=== PATIENT | female | born 1975 | race Caucasian/White ===

== ENCOUNTER 2017-11-21 18:25 | Observation (INO) | payer OTHER, SELFPAY ==
[2017-11-21] VITALS (8 sets, daily range): BP systolic 113–135; BP diastolic 75–93; PULSE 70–87; RESP 12–18; TEMP 36.5–37; O2SAT 98–100; BMI 21.5; BMI 22.5
--- NOTE | 2017-11-21 18:46 | EKG12_ITS ---
Test Reason : CP Blood Pressure : / mmHG Vent. Rate : 081 BPM Atrial Rate : 081 BPM P-R Int : 152 ms QRS Dur : 078 ms QT Int : 348 ms P-R-T Axes : 074 075 060 degrees QTc Int : 404 ms Normal sinus rhythm with sinus arrhythmia Nonspecific ST abnormality Abnormal ECG Confirmed by PRINCESS TAPIA, CALEB ([id number]), staff editor EDUARD LOTT ([id number] on 11/25/2017 1:49:57 PM Referred By: Confirmed By:CALEB SÁNCHEZ MD
--- NOTE | 2017-11-21 18:46 | RAD_ITS ---
STUDY: X-RAY CHEST REASON FOR EXAM: Female, 41 years old. Chest pain TECHNIQUE: Single AP portable view of the chest. COMPARISON: None. FINDINGS: There are monitoring devices. The lungs are clear and expanded. There is no demonstrated pleural abnormality. Normal size heart. Normal mediastinum and sung. Normal visualized pulmonary arteries. Normal visualized aortic arch and descending thoracic aorta. Normal visualized thoracic spine. Normal visualized ribs, clavicles, and shoulders. There is no demonstrated abnormality of the visualized soft tissue structures of the upper abdomen. RAD/Chest 1 View (Portable) IMPRESSION: Normal x-ray examination of the chest. Electronically Signed: Dusty Phelps MD at 19:05 EDT , Service support ,
--- NOTE | 2017-11-21 18:49 | NURSING ---
NO OLD EKG
--- NOTE | 2017-11-21 18:55 | ED.DCSUM_ITS ---
- ER Visit Summary Date of Service: 11/21/17 Chief Complaint: Chest pain, shortness of breath History of Present Illness: The patient is a 41 F presenting with chest pain, shortness of breath. Patient states she has had nausea for the past 2 days without vomiting. Today she began having midsternal chest pain which radiated to her right arm. She was short of breath with this. Symptoms lasted for approximately 3 hours. It is now resolved. She has no coronary artery disease risk factors. She did recently travel to [facility]. No other PE/DVT risk factors. She is not a smoker. Physical Examination: Vitals are stable. Patient is afebrile. Alert no acute distress. HEENT exam is unremarkable. Neck is supple. Lungs are clear and equal bilaterally. Heart is regular rate and rhythm. Abdomen is soft nontender nondistended. Extremities are unremarkable. Skin is warm and dry. No focal neurologic deficit. Remainder of exam is unremarkable. Emergency Department Course and Treatment: Patient was given aspirin on arrival. EKG is sinus rate of [address] depression inferiorly. CBC, chemistries unremarkable. Troponin is negative. D-dimer negative. Chest x-ray shows no acute process. She is chest pain-free on reevaluation. Will discuss with the hospitalist for observation. Disposition: Observation Impression: Chest pain This note was generated with [employer] dictation software. It may contain incorrect words, spelling, and punctuation that were not noted in review of the chart prior to signing ED Disposition - Plan for ED Patient: Chief Complaint: Chest Pain Referrals: Dinorah Sevilla DO [Primary Care Provider] -
[2017-11-21] MEDS: Aspirin 81 MG TAB.CHEW 324 MG PO (18:58)
[2017-11-21 19:02] LABS: Absolute Lymphocyte Count 1.64 X10^3/ul (0.83-4.51); Absolute Neutrophil Count 3.3 X10^3/uL (2.0-7.7); Eosinophil# 0.05 X10^3/uL; Eosinophils% 0.9 % (0-5); Hematocrit 38.6 % (37-47); Hemoglobin 12.5 g/dl (12.0-15.0); Lymphocyte # 1.64 X10^3/ul (4.0); Mean Corp Hgb Conc 32.4 g/gl (32-36); Mean Corpuscular Hgb 26.8 pg (27.0-32.0); Mean Corpuscular Volume 82.8 fL (81-99); Mean Platelet Vol. 9.5 fl (6.2-12.0); Monocyte# 0.44 X10^3/uL; Monocyte% 8.1 % (0-10); Neutrophil # 3.33 X10^3/uL (2.7-7.7); Platelet Count 283 K/mm3 (150-450); RBC Distribution Width CV 14.5 % (11.6-14.6); RBC Distribution Width SD 43.7 fl (35.1-43.9); Red Blood Count 4.66 M/mm3 (4.2-5.4); White Blood Count 5.5 K/mm3 (4.4-11.0)
[2017-11-21 19:04] LABS: POSITIVE COUNT NO; POSITIVE DIFFERENTIAL NO; POSITIVE MORPHOLOGY NO
[2017-11-21 19:13] LABS: Anion Gap 6 (5-15); BUN 13 mg/dL (7-18); BUN/Creat Ratio 18.3 RATIO (10-20); Calcium,Total 8.5 mg/dL (8.5-10.1); Chloride 107 mmol/L (98-107); Creatinine, Serum 0.71 mg/dL (0.55-1.02); EST Glomerular Filtration Rate 97 mL/min (>60); Est Glom Filt Rate - Afr Amer 117 mL/min (>60); Estimated Creatinine Clearance 113.13 ml/min; Glucose 99 mg/dL (74-106); Potassium 3.6 mmol/L (3.5-5.1); Sodium Level 140 mmol/L (136-145)
[2017-11-21 19:22] LABS: D-Dimer Quantitative (DVT/PE) < 0.27 FEU/ug/m (0.27-0.49)
--- NOTE | 2017-11-21 20:43 | PCM.HP.STD ---
History of Present Illness Date of Admission: 11/21/17 Chief Complaint: Chest pain. The patient is a 41 year old F with no significant past medical history except for depression presented to the emergency room because of chest pain. This morning around 10 AM, she was sitting with her kids and she started having chest pain, described as dull aching pain, not radiating, 4-5 out of 10 in severity, associated with mild shortness of breath and nausea, lasted for about 3 hours and resolved spontaneously. She came to the emergency room around 6 PM. At this time, she has no more pain. She mentioned that she took ibuprofen and it did help her pain. Occasionally, the pain worsened by taking a deep breath. Patient was crying during the encounter. She has no personal or family history of CAD. No family history of premature CAD. In the emergency department, her vital signs are stable. Her routine blood work was unremarkable. D-dimer and troponin was negative. EKG revealed normal sinus rhythm, normal [place] interval normal, normal QRS, and no acute ischemic changes. Chest x-ray showed no acute findings. She is being admitted for atypical chest pain for evaluation. 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 Denies: Chest Pressure, Chest Tightness, Edema, Heaviness, Light Headedness, Palpitations, Syncope Respiratory: Reports: Shortness of Breath. Denies: Cough, Pleuritic Pain, Sputum production, Wheezing Gastrointestinal: Reports: Nausea. Denies: Abdominal Pain, Constipation, Diarrhea, Vomiting Genitourinary: Denies: Dysuria, Frequency, Hematuria Musculoskeletal: Denies: Arm Pain, Back Pain, Foot Pain Skin: Denies: Dryness, Rash Neurological: Denies: Balance problems, Double vision, Slurred speech, Confusion, Headaches, Incoordination, Numbness Psychiatric: Reports: Depression. Denies: Anxiety Endocrine: Denies: Change in Body Habitus, Polydipsia VTE Information - Inpt Only VTE Present on Admission: No VTE Mechan Device Prophylaxis: None VTE Pharm Prophylaxis ordered?: No - Physical Exam General: Alert, Oriented x3, Cooperative, - - Patient was tearful during the encounter. HEENT: Atraumatic, PERRLA, EOMI Oral: Moist Mucosa, No Gingival or Mucosal Lesions/ Ulcerations Neck: Supple, No JVD, Negative Carotid Bruits, Trachea Midline, Thyroid Normal Size and Texture Lungs: Clear to auscultation, Normal air movement, No rhonchi, No wheeze, No rales Cardiovascular: Regular rate, Regular Rhythm, Normal S1, Normal S2, No murmurs, PMI Normal Abdomen: Bowel Sounds Present, Soft, Non Tender, Non-Distended, No Hepato-splenomegaly Extremities: No clubbing, No cyanosis, No edema Skin: No rashes, No breakdown Lymphatic: No Cervical, Supraclavicular, or Inguinal Adenopathy Neurological: Cranial nerves II-XII grossly intact, Motor Exam 5/5 strength throughout Psych/Mental Status: Normal Affect, Appropriate, Alert and oriented to time, place, person, mood and affect Vital Signs Temp Pulse Resp BP Pulse Ox 98.6 F 75 12 131/93 H 99 11/21/17 18:26 11/21/17 20:29 11/21/17 20:28 11/21/17 20:28 11/21/17 20:28 Oxygen Delivery Method Room Air Weight: 150 lb Body Mass Index (BMI) 21.5 Laboratory Tests Past 24 Hrs 11/21/17 11/21/17 11/21/17 18:40 18:40 18:40 WBC 5.5 RBC 4.66 Hgb 12.5 Hct 38.6 MCV 82.8 MCH 26.8 L MCHC 32.4 RDW 14.5 RDW Differential 43.7 Plt Count 283 MPV 9.5 Immature Gran % (Auto) 0.000 Neut % (Auto) 61.0 Lymph % (Auto) 30.0 [place] % (Auto) 8.1 Eos % (Auto) 0.9 Baso % (Auto) 0.0 Absolute Neuts (auto) 3.3 Absolute Lymphs (auto) 1.64 Total Counted Not Reportable D-Dimer Quant (PE/DVT) < 0.27 L Sodium 140 Potassium 3.6 Chloride 107 Carbon Dioxide 27.0 Anion Gap 6 BUN 13 Creatinine 0.71 Estim Creat Clear Calc 113.13 Est GFR (MDRD) Af Amer 117 Est GFR (MDRD) Non-Af 97 BUN/Creatinine Ratio 18.3 Glucose 99 Calcium 8.5 Troponin I < 0.02 Clinical Impression(s) from Imaging Studies Chest X-Ray 11/21/17 18:46 IMPRESSION: Normal x-ray examination of the chest. Electronically Signed: Dusty Phelps MD at 19:05 EDT , Service support , Assessment/Plan This is a 41 years old female patient presented to the emergency room because of chest pain and she is being admitted for evaluation. #1 atypical chest pain: With no significant risk factors for CAD. She denied family history of premature CAD. She is not a smoker. Her URBANO score is 0. She is at low risk for CAD. Chest x-ray showed no acute findings. EKG reveals no acute ischemic changes. Troponin is negative. Vital signs are stable. Routine blood work was unremarkable. Plan: Admit to PCU for observation, cardiac monitoring, serial cardiac enzymes, repeat EKG tomorrow morning, Tylenol as needed for pain, treadmill stress test tomorrow morning if cardiac enzymes are negative. #2 depression: Continue Celexa. #3 DVT prophylaxis: Low risk patient, no prophylaxis indicated. This note was generated with [employer] dictation software. It may contain incorrect words, spelling, and punctuation that were not noted in checking the note before signing. Code Visit OBSV E&M: 34443 Initial observation care L2
--- NOTE | 2017-11-21 20:48 | HP.PCM_ITS ---
History of Present Illness Date of Admission: 11/21/17 Chief Complaint: Chest pain. The patient is a 41 year old F with no significant past medical history except for depression presented to the emergency room because of chest pain. This morning around 10 AM, she was sitting with her kids and she started having chest pain, described as dull aching pain, not radiating, 4-5 out of 10 in severity, associated with mild shortness of breath and nausea, lasted for about 3 hours and resolved spontaneously. She came to the emergency room around 6 PM. At this time, she has no more pain. She mentioned that she took ibuprofen and it did help her pain. Occasionally, the pain worsened by taking a deep breath. Patient was crying during the encounter. She has no personal or family history of CAD. No family history of premature CAD. In the emergency department, her vital signs are stable. Her routine blood work was unremarkable. D-dimer and troponin was negative. EKG revealed normal sinus rhythm, normal [place] interval normal, normal QRS, and no acute ischemic changes. Chest x-ray showed no acute findings. She is being admitted for atypical chest pain for evaluation. 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 Denies: Chest Pressure, Chest Tightness, Edema, Heaviness, Light Headedness, Palpitations, Syncope Respiratory: Reports: Shortness of Breath. Denies: Cough, Pleuritic Pain, Sputum production, Wheezing Gastrointestinal: Reports: Nausea. Denies: Abdominal Pain, Constipation, Diarrhea, Vomiting Genitourinary: Denies: Dysuria, Frequency, Hematuria Musculoskeletal: Denies: Arm Pain, Back Pain, Foot Pain Skin: Denies: Dryness, Rash Neurological: Denies: Balance problems, Double vision, Slurred speech, Confusion , Headaches, Incoordination, Numbness Psychiatric: Reports: Depression. Denies: Anxiety Endocrine: Denies: Change in Body Habitus, Polydipsia VTE Information - Inpt Only VTE Present on Admission: No VTE Mechan Device Prophylaxis: None VTE Pharm Prophylaxis ordered?: No - Physical Exam General: Alert, Oriented x3, Cooperative, - - Patient was tearful during the encounter. HEENT: Atraumatic, PERRLA, EOMI Oral: Moist Mucosa, No Gingival or Mucosal Lesions/ Ulcerations Neck: Supple, No JVD, Negative Carotid Bruits, Trachea Midline, Thyroid Normal Size and Texture Lungs: Clear to auscultation, Normal air movement, No rhonchi, No wheeze, No rales Cardiovascular: Regular rate, Regular Rhythm, Normal S1, Normal S2, No murmurs, PMI Normal Abdomen: Bowel Sounds Present, Soft, Non Tender, Non-Distended, No Hepato- splenomegaly Extremities: No clubbing, No cyanosis, No edema Skin: No rashes, No breakdown Lymphatic: No Cervical, Supraclavicular, or Inguinal Adenopathy Neurological: Cranial nerves II-XII grossly intact, Motor Exam 5/5 strength throughout Psych/Mental Status: Normal Affect, Appropriate, Alert and oriented to time, place, person, mood and affect Vital Signs Temp Pulse Resp BP Pulse Ox 98.6 F 75 12 131/93 H 99 11/21/17 18:26 11/21/17 20:29 11/21/17 20:28 11/21/17 20:28 11/21/17 20:28 Oxygen Delivery Method Room Air Weight: 150 lb Body Mass Index (BMI) 21.5 Laboratory Tests Past 24 Hrs 11/21/17 11/21/17 11/21/17 18:40 18:40 18:40 WBC 5.5 RBC 4.66 Hgb 12.5 Hct 38.6 MCV 82.8 MCH 26.8 L MCHC 32.4 RDW 14.5 RDW Differential 43.7 Plt Count 283 MPV 9.5 Immature Gran % (Auto) 0.000 Neut % (Auto) 61.0 Lymph % (Auto) 30.0 [place] % (Auto) 8.1 Eos % (Auto) 0.9 Baso % (Auto) 0.0 Absolute Neuts (auto) 3.3 Absolute Lymphs (auto) 1.64 Total Counted Not Reportable D-Dimer Quant (PE/DVT) < 0.27 L Sodium 140 Potassium 3.6 Chloride 107 Carbon Dioxide 27.0 Anion Gap 6 BUN 13 Creatinine 0.71 Estim Creat Clear Calc 113.13 Est GFR (MDRD) Af Amer 117 Est GFR (MDRD) Non-Af 97 BUN/Creatinine Ratio 18.3 Glucose 99 Calcium 8.5 Troponin I < 0.02 Clinical Impression(s) from Imaging Studies Chest X-Ray 11/21/17 18:46 IMPRESSION: Normal x-ray examination of the chest. Electronically Signed: Dusty Phelps MD at 19:05 EDT , Service support , Assessment/Plan This is a 41 years old female patient presented to the emergency room because of chest pain and she is being admitted for evaluation. #1 atypical chest pain: With no significant risk factors for CAD. She denied family history of premature CAD. She is not a smoker. Her URBANO score is 0. She is at low risk for CAD. Chest x-ray showed no acute findings. EKG reveals no acute ischemic changes. Troponin is negative. Vital signs are stable. Routine blood work was unremarkable. Plan: Admit to PCU for observation, cardiac monitoring, serial cardiac enzymes, repeat EKG tomorrow morning, Tylenol as needed for pain, treadmill stress test tomorrow morning if cardiac enzymes are negative. #2 depression: Continue Celexa. #3 DVT prophylaxis: Low risk patient, no prophylaxis indicated. This note was generated with [employer] dictation software. It may contain incorrect words, spelling, and punctuation that were not noted in checking the note before signing. Code Visit OBSV E&M: 62271 Initial observation care L2
[2017-11-21] MEDS: 0.9% NaCl Peripheral Flush Adult/Peds IV (23:33)
[2017-11-21] MEDS: Ondansetron 4 MG/2 ML Vial IV (23:33)
[2017-11-22 03:10] VITALS: PULSE 68
[2017-11-22 03:13] LABS: Absolute Neutrophil Count 3.1 X10^3/uL (2.0-7.7); Basophil# 0.02 X10^3/uL; Basophil% 0.4 % (0-1); Eosinophil# 0.06 X10^3/uL; Eosinophils% 1.2 % (0-5); Hematocrit 36.9 % (37-47); Hemoglobin 11.8 g/dl (12.0-15.0); Lymphocyte % 29.1 % (19-41); Mean Corpuscular Hgb 26.5 pg (27.0-32.0); Mean Corpuscular Volume 82.7 fL (81-99); Mean Platelet Vol. 9.4 fl (6.2-12.0); Monocyte# 0.45 X10^3/uL; Monocyte% 8.7 % (0-10); Neutrophil # 3.13 X10^3/uL (2.7-7.7); Neutrophil % 60.6 % (47-70); Platelet Count 261 K/mm3 (150-450); RBC Distribution Width CV 14.7 % (11.6-14.6); RBC Distribution Width SD 43.9 fl (35.1-43.9); Red Blood Count 4.46 M/mm3 (4.2-5.4); White Blood Count 5.2 K/mm3 (4.4-11.0)
[2017-11-22 03:16] LABS: International Normalized Ratio 1.3; Prothrombin Time (Protime)PT. 16.3 SECONDS (11.7-14.9)
[2017-11-22 03:19] LABS: POSITIVE COUNT NO; POSITIVE DIFFERENTIAL NO; POSITIVE MORPHOLOGY NO
[2017-11-22 03:21] VITALS: BP 92/53; PULSE 71; RESP 14; TEMP 36.7; O2SAT 96
[2017-11-22 03:21] LABS: Partial Thromboplast Time 28.6 Seconds (24.1-36.2)
[2017-11-22 03:37] LABS: Anion Gap 5 (5-15); BUN 9 mg/dL (7-18); BUN/Creat Ratio 16.4 RATIO (10-20); Calcium,Total 7.9 mg/dL (8.5-10.1); Chloride 110 mmol/L (98-107); Creatinine, Serum 0.55 mg/dL (0.55-1.02); EST Glomerular Filtration Rate 130 mL/min (>60); Est Glom Filt Rate - Afr Amer 157 mL/min (>60); Estimated Creatinine Clearance 147.03 ml/min; Glucose 84 mg/dL (74-106); Potassium 3.7 mmol/L (3.5-5.1); Sodium Level 143 mmol/L (136-145)
[2017-11-22 06:54] VITALS: PULSE 65
[2017-11-22] MEDS: Acetaminophen 325 MG Tablet 650 MG PO (08:41)
--- NOTE | 2017-11-22 09:18 | STRESSREP ---
Stress Test Report Date: 11/22/2017 Procedure: Exercise tolerance test/imaging study Indications: Chest pain Consent: Per the patient Procedure: The patient exercised on a Roland protocol for 9 minutes completing Stage 3 achieving a peak heart rate of 171 bpm (95 % predicted maximal heart rate) with a peak blood pressure 124/70 mmHg and a peak MET capacity of 10 METs. The baseline ECG demonstrated normal sinus rhythm. The peak exercise ECG demonstrated no obvious ECG changes. [There were no cardiac dysrhythmias pretest, during exercise, or recovery]. The functional capacity was considered good. There was [no complaint of chest discomfort during exercise or recovery]. The examination was discontinued secondary to fatigue. Impression: 1. Technically adequate (percent predicted maximal heart rate greater than 85%) exercise tolerance test 2. Peak exercise ECG with no obvious ECG changes 3. There were no cardiac dysrhythmias pretest, during exercise, or recovery. 4. Nuclear images pending Myocardial perfusion imaging study: Technique: The patient was injected with 11.1 mCi of technetium 99m Cardiolite and subsequently rest SPECT Cardiolite nuclear imaging was obtained in the horizontal long, vertical long, and short axis views. The patient exercised on a Roland protocol for 9 minutes completing Stage 3 achieving a peak heart rate of 171 bpm (95 % predicted maximal heart rate) with a peak blood pressure 124/70 mmHg and a peak MET capacity of 10 METs. The patient was injected with 32.8 mCi of technetium 99m Cardiolite and subsequently stress SPECT Cardiolite nuclear imaging was obtained in the horizontal long, vertical long, and short axis views. A gated Cardiolite study at peak stress was obtained. Interpretation: Rest and stress SPECT Cardiolite nuclear imaging status post realignment, normalization, and attenuation correction, demonstrates [the appearance of relative uniform tracer uptake and myocardial perfusion appearing within normal limits]. [There is end systolic thickening and brightening]. The gated Cardiolite study demonstrates [myocardial thickening and inward wall motion]. The reported LVEF is in the 73%. Impression: 1. Rest and stress SPECT Cardiolite nuclear imaging demonstrate [relative uniform tracer uptake and myocardial perfusion appearing within normal limits]. 2. The gated Cardiolite study reports an LVEF of 73 %. This note was generated with [employer] software. It may contain incorrect words, spelling, and punctuation that were not noted in checking the note before signing.
[2017-11-22 09:20] VITALS: BP 106/67; PULSE 70; RESP 18; TEMP 36.7; O2SAT 98
--- NOTE | 2017-11-22 09:23 | STRESSREP_ITS ---
Stress Test Report Date: 11/22/2017 Procedure: Exercise tolerance test/imaging study Indications: Chest pain Consent: Per the patient Procedure: The patient exercised on a Roland protocol for 9 minutes completing Stage 3 achieving a peak heart rate of 171 bpm (95 % predicted maximal heart rate) with a peak blood pressure 124/70 mmHg and a peak MET capacity of 10 METs. The baseline ECG demonstrated normal sinus rhythm. The peak exercise ECG demonstrated no obvious ECG changes. [There were no cardiac dysrhythmias pretest, during exercise, or recovery]. The functional capacity was considered good. There was [no complaint of chest discomfort during exercise or recovery]. The examination was discontinued secondary to fatigue. Impression: 1. Technically adequate (percent predicted maximal heart rate greater than 85% ) exercise tolerance test 2. Peak exercise ECG with no obvious ECG changes 3. There were no cardiac dysrhythmias pretest, during exercise, or recovery. 4. Nuclear images pending Myocardial perfusion imaging study: Technique: The patient was injected with 11.1 mCi of technetium 99m Cardiolite and subsequently rest SPECT Cardiolite nuclear imaging was obtained in the horizontal long, vertical long, and short axis views. The patient exercised on a Roland protocol for 9 minutes completing Stage 3 achieving a peak heart rate of 171 bpm (95 % predicted maximal heart rate) with a peak blood pressure 124/ 70 mmHg and a peak MET capacity of 10 METs. The patient was injected with 32.8 mCi of technetium 99m Cardiolite and subsequently stress SPECT Cardiolite nuclear imaging was obtained in the horizontal long, vertical long, and short axis views. A gated Cardiolite study at peak stress was obtained. Interpretation: Rest and stress SPECT Cardiolite nuclear imaging status post realignment, normalization, and attenuation correction, demonstrates [the appearance of relative uniform tracer uptake and myocardial perfusion appearing within normal limits]. [There is end systolic thickening and brightening]. The gated Cardiolite study demonstrates [myocardial thickening and inward wall motion]. The reported LVEF is in the 73%. Impression: 1. Rest and stress SPECT Cardiolite nuclear imaging demonstrate [relative uniform tracer uptake and myocardial perfusion appearing within normal limits]. 2. The gated Cardiolite study reports an LVEF of 73 %. This note was generated with [employer] software. It may contain incorrect words, spelling, and punctuation that were not noted in checking the note before signing.
[2017-11-22 11:05] VITALS: PULSE 66
--- NOTE | 2017-11-22 11:26 | PCM.DC ---
You will use the following diet at home:: No restrictions Your food should be the consistency of: Regular Your liquids should be the consistency of: Regular/Thin Discharge Activity: Return to Normal Activity Allergies/Adverse Reactions: Allergies clindamycin Allergy (Verified 11/21/17 18:29) Other Medications to take at Discharge Citalopram Hydrobromide [Citalopram HBr] 20 mg PO DAILY 11/21/17 Omeprazole [Prilosec] 20 mg PO DAILY #30 cap 11/22/17 The following prescriptions were given: Omeprazole [Prilosec] 20 mg PO DAILY #30 cap Primary Care Physician: Dinorah Sevilla DO [Primary Care Provider] - Please follow up with your Primary Care Physician in: 1-2 weeks Proposed Discharge Date: 11/22/17
--- NOTE | 2017-11-22 12:42 | PCM.DC.SUM ---
<Luis Alfredo Galarza - Last Filed: 11/22/17 12:42> Discharge Date and Diagnosis Date of Admission: 11/21/17 Date of Discharge: 11/22/17 - Primary Discharge Diagnosis Chest pain-GERD Anxiety Hospital Course and Treatment Imaging Results: 11/22/17 05:55 Nuclear Stress Test - [facility] [NM] AM (NON MEDS) Operations: None Procedures: Stress test Summary of Care Provided: Physical exam on day of discharge: General: Resting comfortably NAD Psych: A/Ox3 normal affect HEENT: PEARRLA AT NC Neck: Supple NT CV: RRR no m/t/r/g/h Resp: CTA Abd: [id number] Soft NT no guarding or rigidity Ext: DP2+= no edema Skin: W/D normal turgor Lymph/Heme: No active bleeding or adenopathy Neuro: CN2-12 intact Hospital course: The patient is a 41 year old F who has a history of anxiety and depression, who presents to the emergency room complaining of chest pain described as a midsternal dull ache, nonradiating, 4-5 out of 10 in severity with some mild shortness of breath, she also had nausea nauseousness when her chest pain would come on. She took an ibuprofen which somewhat helped her pain. In the ER she was tearful and crying, but however had negative d-dimer, negative troponin, negative chest x-ray, negative EKG. She was admitted for chest pain workup. Telemetry remain negative, repeat EKG was negative, stress test was negative, troponins were negative. Is felt that her chest pain was secondary to GERD as she had associated nausea. Is recommended that she trial a month of omeprazole 20 mg daily. Advised her to follow-up with her primary care physician in 1-2 weeks. The patient was discharged home in stable condition This patient was seen by Luis Alfredo Galarza PA-C under the supervision of Doctor Sherley. [] Discharge Diet: No Restrictions Discharge Activity: Return to Normal Activity Home Medications: Medications to take at Discharge Citalopram Hydrobromide [Citalopram HBr] 20 mg PO DAILY 11/21/17 Omeprazole [Prilosec] 20 mg PO DAILY #30 cap 11/22/17 Following Prescrptions Were Given to Patient: Omeprazole [Prilosec] 20 mg PO DAILY #30 cap Primary Care Physician: Dinorah Sevilla DO [Primary Care Provider] - Please follow up with your Primary Care Physician in: 1-2 weeks Please Follow Up With: Dinorah Sevilla DO Disposition: Home Minutes spent on discharge:: 35 Patient Condition:: Stable Medical Necessity - Tobacco Use Smoking Status: Never smoker Meaningful Use Info Meaningful Use Diagnoses (Choose all that apply): None applicable <Tomas Lepe - Last Filed: 11/22/17 14:51> Hospital Course and Treatment Imaging Results: 11/22/17 05:55 Nuclear Stress Test - [facility] [NM] AM (NON MEDS) Operations: None Procedures: Stress test Summary of Care Provided: Patient seen and examined independently. Agree the above note by the physician hospital administrative assistant. The patient is a 41 year old F is with midsternal chest pain. Patient has been having some nausea for the past several days and then just had midsternal chest pain that lasted several hours and then resolved. Patient underwent a stress test that was unremarkable. Is my feeling the patient may had an esophageal spasm that caused this pain. But in regards to the patient's nausea I recommended that she take a daily omeprazole for the next couple weeks see how that helps. I do not feel that is necessary for her to see gastroenterology at this time as it has only been going on for about for 5 days. Has no warning signs or red flags at this time but certainly if this were to proceed longer than couple more weeks and I think gastroenterology evaluation would be advised. [] Discharge Diet: No Restrictions Discharge Activity: Return to Normal Activity Disposition: Home Patient Condition:: Stable Meaningful Use Info Meaningful Use Diagnoses (Choose all that apply): None applicable Code Visit OBSV E&M: 74239 Observation care discharge
== END 2017-11-22 11:26 | disposition home or self-care (01) ==
LOC: ED 19:09 → PCU 20:40
PROVIDERS: Admitting Provider Hospitalist; Emergency Provider Emergency Medicine; Family Provider Internal Medicine; PCP Internal Medicine
DX: R07.89 Other chest pain (principal); R06.02 Shortness of breath; R11.0 Nausea; F32.9 Major depressive disorder, single episode, unspecified; K21.9 Gastro-esophageal reflux disease without esophagitis; F41.9 Anxiety disorder, unspecified; Z79.899 Other long term (current) drug therapy
CPT/HCPCS: 36415; 71045; 78452; 80048; 84484; 85025; 85379; 85610; 85730; 93005; 93017; 96374; 99218; 99283; A9500; A4216; G0378; J2405

== ENCOUNTER → 2018-01-20 08:11 | Outpatient (CLI) | payer OTHER, SELFPAY ==
--- NOTE | 2018-01-20 08:15 | BI_ITS ---
MAMMOGRAPHY - BILATERAL SCREENING REASON FOR EXAM: Female, 42 years old. Routine annual screening examination. PERTINENT HISTORY: Grandmother with breast cancer. TECHNIQUE: Digital bilateral breast dallin (3D mammographic acquisition) in the CC and MLO projections. 2-D mediolateral oblique (MLO) and craniocaudad (CC) views of both breasts were obtained. CAD: Full Field Digital Mammography with Computer Added Detection was performed. COMPARISON: Comparison is made with prior study dated January 14, 2017. FINDINGS: Breast Composition: The breasts are heterogeneously dense, which may obscure small masses. There are no dominant masses or suspicious calcifications. No other significant abnormalities are identified. There has been no significant change since the prior study. BI/SCREENING MAMM (CAD), BILAT IMPRESSION: Stable bilateral screening mammogram. Yearly follow-up mammogram recommended. (A) ASSESSMENT CATEGORY: BIRADS Category 1: Negative. A letter regarding these results will be sent to the patient by the facility within 30 days. Approximately 10% of breast cancers are not detected by mammography. A normal mammogram should not delay biopsy of a clinically suspicious abnormality. [id number] Electronically Signed: Jimmy Brar MD at 9:02 EDT Tel [phone], Service support ,
== END ==
PROVIDERS: Family Provider Internal Medicine; PCP Internal Medicine; Visit Provider Obstetrics & Gynecology
DX: Z12.31 Encounter for screening mammogram for malignant neoplasm of breast (principal)
CPT/HCPCS: 77063; 77067

== ENCOUNTER → 2019-01-30 07:13 | Outpatient (CLI) | payer SELFPAY ==
[2019-01-15 09:48] VITALS: BMI 22.4
--- NOTE | 2019-01-30 06:58 | BI_ITS ---
MAMMOGRAPHY - BILATERAL SCREENING REASON FOR EXAM: Female, 43 years old. Routine annual screening examination. PERTINENT HISTORY: Grandmother with breast cancer. TECHNIQUE: Digital bilateral breast maciel (3D mammographic acquisition) in the CC and MLO projections. 2-D mediolateral oblique (MLO) and craniocaudad (CC) views of both breasts were obtained. CAD: Full Field Digital Mammography with Computer Added Detection was performed. COMPARISON: Comparison is made with prior study dated January 20, 2018 and January 14, 2017. FINDINGS: Breast Composition: The breasts are heterogeneously dense, which may obscure small masses. There are no dominant masses or suspicious calcifications. No other significant abnormalities are identified. There has been no significant change since the prior study. BI/SCREEN MAMM (CAD) W/MACIEL BILAT IMPRESSION: Stable bilateral screening mammogram. Yearly follow-up mammogram recommended. (A) ASSESSMENT CATEGORY: BIRADS Category 1: Negative. A letter regarding these results will be sent to the patient by the facility within 30 days. Approximately 10% of breast cancers are not detected by mammography. A normal mammogram should not delay biopsy of a clinically suspicious abnormality. [id number] Electronically Signed: Jimmy Brar, at 9:31 EDT , Service support ,
== END ==
PROVIDERS: Family Provider Internal Medicine; PCP Internal Medicine; Referring Provider Obstetrics & Gynecology; Visit Provider Obstetrics & Gynecology
DX: Z12.31 Encounter for screening mammogram for malignant neoplasm of breast (principal)
CPT/HCPCS: 77063; 77067

== ENCOUNTER → 2019-08-05 17:01 | Outpatient (CLI) | payer SELFPAY ==
[2019-08-05 16:35] VITALS: BMI 22.4
--- NOTE | 2019-08-05 17:04 | RAD_ITS ---
STUDY: X-RAY - RIGHT KNEE REASON FOR EXAM: Female, 43 years old. right knee pain for many years, mostly when exercising TECHNIQUE: 3 view(s) of the knee. COMPARISON: None. FINDINGS: Normal visualized distal femur. Normal visualized proximal tibia and fibula. Normal proximal tibiofibular articulation. Mildly narrowed medial femorotibial compartment. Normal lateral femorotibial compartment. Normal patellofemoral articulation. The soft tissue structures are unremarkable. RAD/Knee 4 or More Views IMPRESSION: Mild arthritic changes. Electronically Signed: Ottoniel Aguila MD at 18:23 EST , Service support ,
--- NOTE | 2019-08-05 17:04 | RAD_ITS ---
STUDY: X-RAY - LEFT HAND, ATTENTION FIFTH FINGER REASON FOR EXAM: Female, 43 years old. smashed between a log and another object while chopping wood -- left 5th digit TECHNIQUE: view(s) of the finger were obtained. COMPARISON: None. FINDINGS: Normal metacarpal head. Normal metacarpophalangeal joint. Normal proximal phalanx. Normal middle phalanx. Subtle transverse lucency through the proximal shaft of the distal phalanx suspicious for hairline fracture. Normal proximal interphalangeal joint. Normal distal interphalangeal joint. RAD/Finger(s) Min 2 Views IMPRESSION: Suspicious for hairline fracture through the base of the distal phalanx of the fifth finger. Clinical correlation recommended Electronically Signed: Ottoniel Aguila MD at 18:25 EST , Service support ,
== END ==
PROVIDERS: PCP Internal Medicine; Referring Provider Physician Assistant Surgical; Visit Provider Physician Assistant Surgical
DX: S66.912A Strain of unspecified muscle, fascia and tendon at wrist and hand level, left hand, initial encounter (principal); S86.911A Strain of unspecified muscle(s) and tendon(s) at lower leg level, right leg, initial encounter
CPT/HCPCS: 73140; 73564

== ENCOUNTER → 2020-02-01 07:03 | Outpatient (CLI) | payer SELFPAY ==
[2019-08-05 16:35] VITALS: BMI 22.4
--- NOTE | 2020-02-01 07:07 | BI_ITS ---
MAMMOGRAPHY - BILATERAL SCREENING REASON FOR EXAM: Female, 44 years old. Routine annual screening examination. PERTINENT HISTORY: Grandmother with breast cancer. TECHNIQUE: Digital bilateral breast maciel (3D mammographic acquisition) in the CC and MLO projections. 2-D mediolateral oblique (MLO) and craniocaudad (CC) views of both breasts were obtained. CAD: Full Field Digital Mammography with Computer Added Detection was performed. COMPARISON: Comparison is made with prior examination dated January 30, 2019 and January 20, 2018. FINDINGS: Breast Composition: The breasts are heterogeneously dense, which may obscure small masses. There are no dominant masses or suspicious calcifications. No other significant abnormalities are identified. There has been no significant change since the prior study. BI/SCREEN MAMM (CAD) W/MACIEL BILAT IMPRESSION: Stable bilateral screening mammogram. Yearly follow-up mammogram recommended. (A) ASSESSMENT CATEGORY: BIRADS Category 1: Negative. A letter regarding these results will be sent to the patient by the facility within 30 days. Approximately 10% of breast cancers are not detected by mammography. A normal mammogram should not delay biopsy of a clinically suspicious abnormality. [id number] Electronically Signed: Jimmy Brar, at 9:55 EDT , Service support ,
== END ==
PROVIDERS: PCP Internal Medicine; Referring Provider Obstetrics & Gynecology; Visit Provider Obstetrics & Gynecology
DX: Z12.31 Encounter for screening mammogram for malignant neoplasm of breast (principal)
CPT/HCPCS: 77063; 77067

== ENCOUNTER → 2020-04-07 | Outpatient (CLI) | payer OTHER, SELFPAY ==
[2019-08-05 16:35] VITALS: BMI 22.4
[2020-04-14 13:08] LABS: HPV APTIMA, High Risk Negative (Negative)
== END | disposition home or self-care (01) ==
LOC: LABSPEC 15:56
PROVIDERS: PCP Internal Medicine; Visit Provider Obstetrics & Gynecology
DX: Z12.4 Encounter for screening for malignant neoplasm of cervix (principal)
CPT/HCPCS: 87624; 88175; G0145

== ENCOUNTER → 2021-02-09 07:03 | Outpatient (CLI) | payer SELFPAY ==
[2019-08-05 16:35] VITALS: BMI 22.4
--- NOTE | 2021-02-09 07:06 | BI_ITS ---
MAMMOGRAPHY - BILATERAL SCREENING REASON FOR EXAM: Female, 45 years old. Routine annual screening examination. PERTINENT HISTORY: Grandmother with breast cancer. TECHNIQUE: Digital bilateral breast maciel (3D mammographic acquisition) in the CC and MLO projections. 2-D mediolateral oblique (MLO) and craniocaudad (CC) views of both breasts were obtained. CAD: Full Field Digital Mammography with Computer Added Detection was performed. COMPARISON: Comparison is made with prior study dated 02/01/2020 and 01/30/2019. FINDINGS: Breast Composition: The breasts are heterogeneously dense, which may obscure small masses. There are no dominant masses or suspicious calcifications. No other significant abnormalities are identified. There has been no significant change since the prior study. BI/SCRN MAMM (CAD)W/MACIEL BILAT IMPRESSION: Stable bilateral screening mammogram. Yearly follow-up mammogram recommended. (A) ASSESSMENT CATEGORY: BIRADS Category 1: Negative. A letter regarding these results will be sent to the patient by the facility within 30 days. Approximately 10% of breast cancers are not detected by mammography. A normal mammogram should not delay biopsy of a clinically suspicious abnormality. [id number] Electronically Signed: Jimmy Brar MD at 9:01 EDT , Service support ,
== END ==
PROVIDERS: PCP Internal Medicine; Referring Provider Obstetrics & Gynecology; Visit Provider Obstetrics & Gynecology
DX: Z12.31 Encounter for screening mammogram for malignant neoplasm of breast (principal)
CPT/HCPCS: 77063; 77067

== ENCOUNTER → 2021-04-05 11:02 | Outpatient (CLI) | payer OTHER, SELFPAY ==
[2021-04-05 11:17] LABS: Mean Corp Hgb Conc 33.3 g/dL (32-36); Mean Corpuscular Hgb 29.5 pg (27.0-32.0); Mean Corpuscular Volume 88.6 fL (81-99); Mean Platelet Vol. 9.2 fl (6.2-12.0); Platelet Count 327 K/mm3 (150-450); RBC Distribution Width CV 12.2 % (11.6-14.6); RBC Distribution Width SD 39.8 fl (35.1-43.9); Red Blood Count 5.08 M/mm3 (4.2-5.4); White Blood Count 4.7 K/mm3 (4.4-11.0)
[2021-04-05 11:47] LABS: Thyroid Stim Hormone (TSH) 0.65 uIU/mL (0.358-3.74)
== END ==
PROVIDERS: PCP Internal Medicine; Visit Provider Obstetrics & Gynecology
DX: N92.6 Irregular menstruation, unspecified (principal)
CPT/HCPCS: 36415; 84443; 85027

== ENCOUNTER → 2021-07-05 13:15 | Outpatient (CLI) | payer SELFPAY | PROVIDERS: PCP Internal Medicine; Visit Provider Obstetrics & Gynecology | DX: N92.1 Excessive and frequent menstruation with irregular cycle (principal); N94.3 Premenstrual tension syndrome | CPT/HCPCS: 36415; 84144 ==

== ENCOUNTER → 2022-04-24 | Outpatient (CLI) | payer SELFPAY ==
--- NOTE | 2022-04-24 16:29 | BI_ITS ---
MAMMOGRAPHY - BILATERAL SCREENING REASON FOR EXAM: Female, 46 years old. Routine annual screening examination. PERTINENT HISTORY: Grandmother with breast cancer. TECHNIQUE: Digital bilateral breast maciel (3D mammographic acquisition) in the CC and MLO projections. 2-D mediolateral oblique (MLO) and craniocaudad (CC) views of both breasts were obtained. CAD: Full Field Digital Mammography with Computer Added Detection was performed. COMPARISON: Comparison is made with prior study dated 02/09/2021 and 02/01/2020. FINDINGS: Breast Composition: The breasts are heterogeneously dense, which may obscure small masses. There are no dominant masses or suspicious calcifications. No other significant abnormalities are identified. There has been no significant change since the prior study. BI/SCRN MAMM (CAD)W/MACIEL BILAT IMPRESSION: Stable bilateral screening mammogram. Yearly follow-up mammogram recommended. (A) ASSESSMENT CATEGORY: BIRADS Category 1: Negative. A letter regarding these results will be sent to the patient by the facility within 30 days. Approximately 10% of breast cancers are not detected by mammography. A normal mammogram should not delay biopsy of a clinically suspicious abnormality. [id number] Electronically Signed: Jimmy Brar MD at 21:24 EDT ,
== END | disposition home or self-care (01) ==
LOC: OPBI 04-25 07:02
PROVIDERS: PCP Internal Medicine; Visit Provider Student in an Organized Health Care Education/Training Program
DX: Z12.31 Encounter for screening mammogram for malignant neoplasm of breast (principal); Z80.3 Family history of malignant neoplasm of breast
CPT/HCPCS: 77063; 77067

== ENCOUNTER → 2023-04-08 | Outpatient (CLI) | payer OTHER, SELFPAY ==
[2023-04-12 15:07] LABS: HPV APTIMA, High Risk Negative (Negative)
== END | disposition home or self-care (01) ==
LOC: LABSPEC 16:06
PROVIDERS: PCP Internal Medicine; Referring Provider Student in an Organized Health Care Education/Training Program; Visit Provider Student in an Organized Health Care Education/Training Program
DX: Z01.419 Encounter for gynecological examination (general) (routine) without abnormal findings (principal)
CPT/HCPCS: 87624; 88175; G0145

== ENCOUNTER → 2023-07-17 | Outpatient (CLI) | payer SELFPAY, OTHER ==
--- NOTE | 2023-07-17 10:31 | BI_ITS ---
MAMMOGRAPHY - BILATERAL SCREENING 3-D TOMOSYNTHESIS REASON FOR EXAM: Female, 47 years old. Routine annual screening mammogram. PERTINENT HISTORY: Grandmother with breast cancer, age not identified. TECHNIQUE: 2-D mammograms and 3-D Tomosynthesis of the breast (s) were performed. CAD was performed. COMPARISON: April 24, 2022, February 09, 2021 FINDINGS: Heterogeneously dense fibroglandular tissue which may obscure small masses. Stable normal lymph nodes and scattered benign calcifications. No dominant masses, suspicious microcalcifications, asymmetries, skin thickening or nipple retraction. BI/SCRN MAMM (CAD)W/MACIEL BILAT IMPRESSION: No interval change and no mammographic signs of malignancy. Routine yearly mammogram recommended. ASSESSMENT CATEGORY: BIRADS Category 2: Benign. A letter regarding these results will be sent to the patient by the facility within 30 days. FOLLOW UP RECOMMENDATION: Yearly follow up mammogram recommended. (A) Approximately 10% of breast cancers are not detected by mammography. A normal mammogram should not delay biopsy of a clinically suspicious abnormality. Electronically Signed: Jean Pierre Beck MD at 14:08 EST ,
== END | disposition home or self-care (01) ==
PROVIDERS: PCP Internal Medicine; Referring Provider Internal Medicine; Visit Provider Internal Medicine
DX: Z12.31 Encounter for screening mammogram for malignant neoplasm of breast (principal)
CPT/HCPCS: 77063; 77067

== ENCOUNTER → 2024-10-02 | Outpatient (CLI) | payer SELFPAY ==
--- NOTE | 2024-10-02 12:20 | BI_ITS ---
PROCEDURE: SCRN MAMM (CAD)W/MACIEL BILAT REASON FOR EXAM: F, Age 48 y/o, presents for annual screening mammogram. Family history of breast cancer in paternal great grandmother. TECHNIQUE: Bilateral screening digital breast tomosynthesis with 2D and 3D images. Computer aided detection. COMPARISON: 07/17/2023 FINDINGS: The breasts are heterogeneously dense which may obscure small masses. The mammogram demonstrates that the patient has dense breasts. Supplemental screening with whole breast ultrasound or MRI may be considered for further evaluation. No suspicious masses, areas of developing architectural distortion, or suspicious calcifications. BI/SCRN MAMM (CAD)W/MACIEL BILAT IMPRESSION: There is no mammographic evidence of malignancy. BI-RADS 1: NEGATIVE. RECOMMEND ANNUAL MAMMOGRAPHIC SCREENING. Follow-up code: Routine Follow-up The patient will be notified of the results by letter. Reading Location: [id number]
--- NOTE | 2024-10-02 12:21 | US_ITS ---
PROCEDURE: PELVIC (NON ) REASON FOR EXAM: AUB TECHNIQUE: Transabdominal pelvic ultrasound COMPARISON: None. FINDINGS: LMP: September 24, 2024. Measurements: Uterus: 10 cm x 5.7 cm x 4.6 cm with a volume of 136.4 mL Endometrial Thickness: 6.6 mm. It is trilaminar. Right Ovary: 3.4 cm x 2.2 cm x 1.2 cm with a volume of 4.8 mL. Left Ovary: 3.4 cm x 2.3 cm x 1.3 cm with a volume of 5.05 mL. TRANSABDOMINAL: Uterus: Normal size, myometrial echotexture, and contour. Endometrium: Unremarkable. Right ovary: Normal size and echotexture. Left ovary: Small follicles are seen in the left ovary. No large pelvic mass identified. US/Pelvic (Non ) IMPRESSION: Small follicles are seen in the left ovary. No other abnormality is seen. Reading Location: [place] [id number]
== END | disposition home or self-care (01) ==
PROVIDERS: PCP Nurse Practitioner Family; Referring Provider Advanced Practice Midwife; Visit Provider Advanced Practice Midwife
DX: N93.9 Abnormal uterine and vaginal bleeding, unspecified (principal); Z12.31 Encounter for screening mammogram for malignant neoplasm of breast
CPT/HCPCS: 76856; 77063; 77067